=== PATIENT | female | born 1975 | race Caucasian/White ===

== ENCOUNTER 2021-05-15 16:15 | Emergency (ER) | payer MEDICAID ==
[~2021-05-15] VITALS: Ht 165.1 cm; Wt 54.9 kg
[2021-05-15] MEDS ORDERED: CefTRIAXone 1000mg IM Kit (w/lidocaine diluent) IM STA (21:15)
[2021-05-15] MEDS ORDERED: DOXY100C76 PO (21:52)
[2021-05-15] MEDS ORDERED: ketorolac trometh. 30mg/ml inj. IM ONE (22:10)
[2021-05-15 22:21] VITALS: BP 115/83
--- NOTE | 2021-05-15 22:33 | NUR ---
Pt complains of RUQ pain. Md Tang notified, verbal order for toradol. Continue monitoring
--- NOTE | 2021-05-15 23:09 | NUR ---
Md Tang at bedside for reeval. No further intervention. Pt going home with VOTC form filled, VSS
== END 2021-05-15 23:17 | disposition home or self-care (01) ==
LOC: ER 16:16
DX: A64 Unspecified sexually transmitted disease (principal); R10.11 Right upper quadrant pain; R05 Cough; K59.00 Constipation, unspecified; F32.9 Major depressive disorder, single episode, unspecified; Z90.49 Acquired absence of other specified parts of digestive tract; Z79.2 Long term (current) use of antibiotics
CPT/HCPCS: 96372; 99284; J0696; J1885